=== PATIENT | male | born 1990 | race African-American/Black ===

== ENCOUNTER 2018-12-08 12:52 | Emergency (ER) | payer SELFPAY ==
[~2018-12-08] VITALS: Ht 175.3 cm; Wt 90.0 kg
[2018-12-08] MEDS ORDERED: LEVETIRACETAM 500MG PREMIX 100 ML IV ONE (14:15)
[2018-12-08 15:19] LABS: CHLORIDE 104 mEq/L (98-107)
[2018-12-08 15:21] LABS: BASOPHILS % 0.2 % (0.0-2.0); HEMATOCRIT. 48.3 % (42.0-52.0); HEMOGLOBIN. 16.5 g/dL (14.0-18.0); MEAN CORPUSCULAR HEMOGLOBIN 33.2 pg (28.0-32.0); MEAN PLATELET VOLUME 9.5 fl (7.4-10.4); MONOCYTES % 4.8 % (2.0-8.0); PLATELET 133 x1000/uL (130-400); RED BLOOD CELL COUNT 4.98 mill/uL (4.7-6.1); RED CELL DISTRIBUTION WIDTH 15.1 % (11.6-14.6)
[2018-12-08 15:23] LABS: ETHANOL BLOOD < 10 mg/dL
[2018-12-08 15:33] LABS: *AMPHETAMINES SCREEN URINE NEGATIVE (NEGATIVE); *BARBITURATES SCREEN URINE NEGATIVE (NEGATIVE); *BENZODIAZEPINES SCREEN URINE PRESUMTIVE POSITIVE (NEGATIVE); *COCAINE SCREEN URINE NEGATIVE (NEGATIVE); CANNABINOID URINE SCREEN PRESUMTIVE POSITIVE (NEGATIVE); OPIATES URINE SCREEN PRESUMTIVE POSITIVE (NEGATIVE); PHENCYCLIDINE URINE SCREEN NEGATIVE (NEGATIVE)
[2018-12-08 15:35] LABS: METHADONE URINE SCREEN NEGATIVE (NEGATIVE)
[2018-12-08 16:27] VITALS: BP 132/67
== END 2018-12-08 16:39 | disposition home or self-care (01) ==
LOC: ER 12:52
DX: R56.9 Unspecified convulsions (principal); F19.10 Other psychoactive substance abuse, uncomplicated; F12.10 Cannabis abuse, uncomplicated; F17.200 Nicotine dependence, unspecified, uncomplicated
CPT/HCPCS: 36415; 80053; 80305; 80320; 85025; 96365; 99283; J1953; G0480